=== PATIENT | male | born 1940 | race Caucasian/White ===

== ENCOUNTER 2017-08-14 10:16 | Emergency (ER) | payer MEDICARE, OTHER ==
[2017-08-14 10:28] VITALS: BP 167/71; PULSE 95; TEMP 99.1; BMI 26.6
--- NOTE | 2017-08-14 11:02 | PDOC ---
History of Present Illness - General Chief Complaint: Cold Symptoms Stated Complaint: COLD, CONGESTION Time Seen by Provider: 08/14/17 10:58 History Source: Patient Exam Limitations: No Limitations - History of Present Illness Initial Comments: 08/14/17 11:17 Patient is a 76-year-old male with past medical history of hypertension, hyperlipidemia, coronary artery disease, who presents emergency department today complaining of cough and congestion for 5 days. States he has tried over- the-counter cough medicine with little relief. Denies fevers, chills, earache, sore throat, shortness of breath, difficulty breathing, nausea, vomiting and diarrhea. Past History - Travel Traveled outside of the country in the last 30 days: No Close contact w/someone who was outside of country & ill: No - Past Medical History Allergies/Adverse Reactions: Allergies Allergy/AdvReac Type Severity Reaction Status Date / Time No Known Allergies Allergy Verified 08/14/17 10:25 Home Medications: Ambulatory Orders Amlodipine/Atorvastatin [Caduet 10 mg-20 mg Tablet] 1 each PO DAILY 02/22/16 Amlodipine Besylate [Norvasc -] 10 mg PO DAILY #30 tablet 02/26/16 Clindamycin [Cleocin -] 300 mg PO Q6HPO #28 capsule 02/26/16 Diltiazem Cd [Cardizem Cd -] 120 mg PO DAILY #30 cap.cd.24h 02/26/16 Metoprolol Succinate [Toprol XL -] 100 mg PO BID #60 tab.sr.24h 02/26/16 Cetirizine HCl [Zyrtec -] 10 mg PO DAILY #30 tablet 08/14/17 Pseudoephedrine HCl [Sudafed] 30 mg PO Q8H #15 tablet 08/14/17 Cardiac Disorders: Yes (2 stents) COPD: No Diabetes: Yes HTN: Yes Hypercholesterolemia: Yes - Surgical History Cardiac Surgery: Yes (2 stents) - Immunization History Immunization Up to Date: Yes - Suicide/Smoking/Psychosocial Hx Smoking Status: Yes Smoking History: Former smoker Have you smoked in the past 12 months: No Number of Cigarettes Smoked Daily: 0 Cigars Per Day: 3 Information on smoking cessation initiated: No 'Breaking Loose' booklet given: 02/23/16 Hx Alcohol Use: No Drug/Substance Use Hx: No Substance Use Type: None Hx Substance Use Treatment: No Review of Systems - Review of Systems Able to Perform ROS?: Yes Comments:: 08/14/17 11:02 CONSTITUTIONAL: Absent: fever, chills, diaphoresis, generalized weakness, malaise, loss of appetite HEENT: Present: nasal congestion, watery eyes Absent: rhinorrhea, throat pain, throat swelling, difficulty swallowing, mouth swelling, ear pain, eye pain, visual Changes CARDIOVASCULAR: Absent: chest pain, loss of consciousness, palpitations, irregular heart rate, peripheral edema RESPIRATORY: Present: productive cough Absent: shortness of breath, dyspnea with exertion, orthopnea, wheezing, stridor, hemoptysis GASTROINTESTINAL: Absent: abdominal pain, abdominal distension, nausea, vomiting, diarrhea, constipation, melena, hematochezia SKIN: Absent: rash, itching, pallor NEUROLOGIC: Absent: headache, focal weakness or paresthesias, dizziness, unsteady gait, seizure, mental status changes, bladder or bowel incontinence Is the patient limited [place] proficient: No *Physical Exam - Vital Signs Last Vital Signs Temp Pulse Resp BP Pulse Ox 99.1 F 95 H 19 167/71 96 08/14/17 10:25 08/14/17 10:25 08/14/17 10:25 08/14/17 10:25 08/14/17 10:25 - Physical Exam Comments: 08/14/17 11:02 GENERAL: Well developed, well nourished. Awake and alert. No acute distress. HEENT: Normocephalic, atraumatic. PERRLA, EOMI. No conjunctival pallor. Sclera are non- icteric. Moist mucous membranes. Oropharynx is without erythema, postnasal drip present. NECK: Supple. Full ROM. No JVD. Carotid pulses 2+ and symmetric, without bruits. No thyromegaly. No lymphadenopathy. CARDIOVASCULAR: Regular rate and rhythm. No murmurs, rubs, or gallops. Distal pulses are 2+ and symmetric. PULMONARY: No evidence of respiratory distress. Lungs clear to auscultation bilaterally. No wheezing, rales or rhonchi. SKIN: Warm and dry. Normal capillary refill. No rashes. No jaundice. NEUROLOGICAL: Alert, awake, appropriate. Cranial nerves 2-12 intact. No deficits to light touch and temperature in face, upper extremities and lower extremities. No motor deficits in the in face, upper extremities and lower extremities. Normoreflexic in the upper and lower extremities. Normal speech. Toes are down- going bilaterally. Gait is normal without ataxia. Medical Decision Making - Medical Decision Making 08/14/17 11:19 Patient is a 76-year-old male with past medical history of hypertension, hyperlipidemia who presents with 5 days of cold-like symptoms. Exam is unremarkable except for some postnasal drip. Common cold versus ALLERGIES. We' ll prescribe Sudafed and Zyrtec at this time. Return precautions given. Patient instructed to follow-up with his primary care doctor. Patient says all discharge instructions and all were answered. *DC/Admit/Observation/Transfer Diagnosis at time of Disposition: Common cold - Discharge Dispostion Disposition: HOME Condition at time of disposition: Stable Decision to Admit order: No - Prescriptions Prescriptions: Cetirizine HCl [Zyrtec -] 10 mg PO DAILY #30 tablet Pseudoephedrine HCl [Sudafed] 30 mg PO Q8H #15 tablet - Referrals Referrals: Nic Ellis [Primary Care Provider] - - Patient Instructions Printed Discharge Instructions: DI for Common Cold Additional Instructions: You have cold-like symptoms. Please take the Sudafed every 8 hours as needed for congestion. Please take the Zyrtec daily to help with your ALLERGY symptoms. Drink plenty of fluids. Please follow up with her primary care doctor this week. Return to the emergency department if you have shortness of breath, difficulty breathing, fevers, or have any changes in your symptoms. - Post Discharge Activity
== END 2017-08-14 11:15 | disposition home or self-care (01) ==
LOC: JERFT 10:16
DX: J00 Acute nasopharyngitis [common cold] (principal); I25.10 Atherosclerotic heart disease of native coronary artery without angina pectoris; I10 Essential (primary) hypertension; Z95.5 Presence of coronary angioplasty implant and graft; E78.00 Pure hypercholesterolemia, unspecified; E11.9 Type 2 diabetes mellitus without complications; Z87.891 Personal history of nicotine dependence
CPT/HCPCS: 99281-25